=== PATIENT | female | born 1930 | race Caucasian/White ===

== ENCOUNTER → 2017-01-08 | Outpatient (CLI) | payer MEDICARE, OTHER ==
[~2017-01-08] MED LIST: ALBUTEROL0.63 MG/3 INH; ASPIR-LOW81 MG PO; BUDESONIDE EC3 MG PO; COMBIVENT0.074 GM/I INH; COREG 3.125M3.125 MG PO; ENSURE ORIGINA237 ML PO; IPRAT-ALBUT 0.5-3 ML INH; LOPRESSOR 25 MG25 MG PO; MEDROL DOSEPAK 24 MG PO; MEDROL4 MG PO; NORVASC 5 MG TAB5 MG PO; NYSTATIN100000 UNI PO; PROCARDIA XL90 MG PO; PROTONIX40 MG PO; PROZAC10 MG PO; ROBITUSSIN DM473 ML PO; ROXICODONE TAB 55 MG PO; SPIRIVA18 MCG INH; SYMBICORT 80-41 INHA INH; VITAMIN D 11000 UNIT PO; ZOCOR40 MG PO
== END ==
LOC: MAMO 12:56
DX: Z12.31 Encounter for screening mammogram for malignant neoplasm of breast (principal)
CPT/HCPCS: G0202